=== PATIENT | male | born 1990 | race Caucasian/White ===

== ENCOUNTER 2018-02-07 09:18 | Emergency (ER) | payer OTHER ==
[~2018-02-07] VITALS: Ht 170.2 cm; Wt 86.2 kg
[2018-02-07 09:22] VITALS: Ht 170.2 cm; Wt 86.2 kg
[2018-02-07 11:49] VITALS: BP 132/68
== END 2018-02-07 11:30 | disposition home or self-care (01) ==
LOC: ED 09:18
DX: S41.111A Laceration without foreign body of right upper arm, initial encounter (principal); W17.89XA Other fall from one level to another, initial encounter; Y93.89 Activity, other specified; Y92.89 Other specified places as the place of occurrence of the external cause; Y99.8 Other external cause status
CPT/HCPCS: J2001